=== PATIENT | female | born 1985 | race Caucasian/White ===

== ENCOUNTER 2020-07-22 09:42 | Emergency (ER) | payer MEDICAID ==
[~2020-07-22] VITALS: Ht 162.6 cm; Wt 94.7 kg
[~2020-07-22 09:42] MED LIST: DOCU-131 PO; FLUO40CA9 PO; HYDR-2214 PO; IBUP-1222 PO; IBUP-1902 PO; IBUP200T49 PO; METF500T17 PO; MUSINEX PO; NITR100C56 PO; OXYC1TAB12 PO; PREN1TAB25 PO
[2020-07-22] MEDS ORDERED: HYDROmorphone 2 MG/ML, 1ML IM ONE (10:30)
[2020-07-22] MEDS ORDERED: HYDROmorphone 1 MG/ML, 1ML INJ ONE (10:35)
--- NOTE | 2020-07-22 10:53 | NUR ---
PT STATES BILAT LBP X2 DAYS. PT STATES PAIN RADIATES DOWN RLE. PT MEDICATED FOR PAIN PER ORDERS, PLACED ON MONITORS. WILL REASSESS.
--- NOTE | 2020-07-22 11:39 | NUR ---
PT AWAITING ERMD REASSESSMENT. PT STATES PAIN SLIGHTLY DECREASED WITH PAIN MEDICATIONS.
[2020-07-22] MEDS ORDERED: KETOROLAC 30 MG/1 ML IM ONE (12:00)
[2020-07-22] MEDS ORDERED: KETOROLAC 30 MG/1 ML ONE (12:09)
[2020-07-22 12:17] VITALS: BP 98/77
--- NOTE | 2020-07-22 12:17 | NUR ---
PT LYING ON SIDE IN POSITION OF COMFORT. STATES PAIN HAS IMPROVED SINCE MEDICATED NOTED ON JUN. ADDITIONALLY MEDICATED WITH TORADOL AND GIVEN DISCHARGE INSTRUCTIONS. TO DISHCHARGE WINDOW VIA W/C
== END 2020-07-22 12:19 | disposition home or self-care (01) ==
LOC: ED 10:21
DX: M54.16 Radiculopathy, lumbar region (principal)
CPT/HCPCS: 72110; 96372; 99284; J1170; J1885

== ENCOUNTER 2020-07-25 18:24 | Emergency (ER) | payer MEDICAID ==
[~2020-07-25] VITALS: Ht 162.6 cm; Wt 94.0 kg
[~2020-07-25 18:24] MED LIST changes: +HYDR-1067 PO; -HYDR-2214 PO; -OXYC1TAB12 PO; +OXYC1TAB14 PO
--- NOTE | 2020-07-25 19:10 | NUR ---
PT TO ROOM FROM LOBBY. CALL LIGHT WITHIN REACH.
[2020-07-25] MEDS ORDERED: SODIUM CHLORIDE FLUSH 10ML SYR IVF ONE (19:30)
[2020-07-25] MEDS ORDERED: MORPHINE SULFATE 4 MG/ML, 1ML IVPush PRN (19:30)
[2020-07-25] MEDS ORDERED: ONDANSETRON ODT 4 MG PO ONE (19:30)
[2020-07-25] MEDS ORDERED: ONDANSETRON ODT 4 MG ONE (19:44)
[2020-07-25] MEDS ORDERED: MORPHINE SULFATE 4 MG/ML, 1ML ONE (19:44)
--- NOTE | 2020-07-25 19:59 | NUR ---
IV PLACED, LABS DRAWN WITH START. PT MEDICATED PER ERP ORDER FOR 6/10 BACK PAIN. MRI FORM COMPLETED/FAXED AND NOW AT BS WITH PT. VSS, CALL LIGHT WITHIN REACH. PT REPORTS PAIN LESS FOLLOWING MEDICATION, RATED 4/10 NOW.
--- NOTE | 2020-07-25 20:20 | NUR ---
PT IN MRI
--- NOTE | 2020-07-25 21:34 | NUR ---
MRI READ BACK, PT FOR RECHECK.
[2020-07-25] MEDS ORDERED: KETOROLAC 30 MG/1 ML ONE (21:51)
[2020-07-25] MEDS ORDERED: METHOCARBAMOL 750 MG TABLET ONE (21:51)
[2020-07-25] MEDS ORDERED: METHOCARBAMOL 750 MG TABLET PO ONE (22:00)
[2020-07-25] MEDS ORDERED: KETOROLAC 30 MG/1 ML IVPush ONE (22:00)
[2020-07-25 22:12] VITALS: BP 121/61
== END 2020-07-25 22:14 | disposition home or self-care (01) ==
LOC: ED 19:11
DX: M48.061 Spinal stenosis, lumbar region without neurogenic claudication (principal); R32 Unspecified urinary incontinence
CPT/HCPCS: 72148; 96374; 96375; 99284; J1885; J2270; J7512; Q0162